=== PATIENT | male | born 2000 | race Caucasian/White ===

== ENCOUNTER 2018-04-16 23:18 | Emergency (ER) | payer OTHER ==
[~2018-04-16] VITALS: Ht 195.6 cm; Wt 122.5 kg
[2018-04-17 00:24] VITALS: BP 187/90
== END 2018-04-17 00:25 | disposition home or self-care (01) ==
LOC: M.ERS 23:18
DX: S61.213A Laceration without foreign body of left middle finger without damage to nail, initial encounter (principal); W31.89XA Contact with other specified machinery, initial encounter; Y93.89 Activity, other specified; Y92.89 Other specified places as the place of occurrence of the external cause; Y99.0 Civilian activity done for income or pay

== ENCOUNTER → 2019-05-10 | Emergency (ER) | payer OTHER ==
[~2019-05-10] VITALS: Ht 195.6 cm; Wt 127.0 kg
[2019-05-11 00:40] VITALS: BP 148/63
== END ==
LOC: M.ERS 23:37
DX: S46.811A Strain of other muscles, fascia and tendons at shoulder and upper arm level, right arm, initial encounter (principal); X50.1XXA Overexertion from prolonged static or awkward postures, initial encounter; Y92.89 Other specified places as the place of occurrence of the external cause; Y93.89 Activity, other specified; Y99.8 Other external cause status

== ENCOUNTER 2020-06-19 12:09 | Emergency (ER) | payer OTHER ==
[~2020-06-19] VITALS: Ht 195.6 cm; Wt 129.3 kg
[2020-06-19 12:15] VITALS: BP 145/76
[2020-06-19] MEDS ORDERED: HYDROCORTISONE3011 TOP (12:21)
[2020-06-19] MEDS ORDERED: HYDROXYZINE HCL25 M2 PO (12:21)
== END 2020-06-19 12:25 | disposition home or self-care (01) ==
LOC: M.ERS 12:09
DX: L25.9 Unspecified contact dermatitis, unspecified cause (principal); Z91.018 Allergy to other foods

== ENCOUNTER 2021-03-26 22:46 | Emergency (ER) | payer OTHER ==
[~2021-03-26] VITALS: Ht 195.6 cm; Wt 129.3 kg
[~2021-03-26 22:46] MED LIST: HYDROCORTISONE3011 TOP; HYDROXYZINE HCL25 M2 PO
[2021-03-27] MEDS ORDERED: TORADOL 10 MG T10 MG PO (00:32)
[2021-03-27] MEDS ORDERED: NORFLEX100 MG PO (00:32)
[2021-03-27 00:45] VITALS: BP 164/109
== END 2021-03-27 00:45 | disposition home or self-care (01) ==
LOC: M.ERS 22:46
DX: S29.012A Strain of muscle and tendon of back wall of thorax, initial encounter (principal); X50.9XXA Other and unspecified overexertion or strenuous movements or postures, initial encounter; Y93.89 Activity, other specified; Y92.89 Other specified places as the place of occurrence of the external cause; Y99.8 Other external cause status